=== PATIENT | male | born 1950 | race Two or more races ===

== ENCOUNTER 2017-11-10 11:12 | Emergency (ER) | payer OTHER ==
[~2017-11-10] VITALS: Ht 170.2 cm; Wt 134.3 kg
[~2017-11-10 11:12] MED LIST: AMLODIPINE BESY10 M1 PO; ASPIR 8181 MG PO; ATENOLOL100 MG PO; DIOVAN320 MG PO; GLIPIZIDE XL2.5 M1 PO; GLIPIZIDE10 MG PO; HYDROCHLOROTH12.5 M2 PO; METFORMIN HCL850 MG PO; REQUIP0.5 MG PO; RESTORIL30 MG PO; TASIGNA150 MG PO
[2017-11-10 11:19] VITALS: Ht 170.2 cm; Wt 134.3 kg
[2017-11-10 12:02] LABS: CARBON DIOXIDE 30.5 mmol/L (21-32); CHLORIDE SERUM 101 mmol/L (98-107); GFR1 > 60 mL/min; GLUCOSE SERUM 306 mg/dL (74-106); POTASSIUM SERUM 4.3 mmol/L (3.5-5.1); SODIUM SERUM 141 mmol/L (136-145)
[2017-11-10 12:06] LABS: ALKALINE PHOSPHATASE 123 U/L (46-116); ALT/SGPT 60 U/L (16-63); AST/SGOT 29 U/L (15-37); BILIRUBIN TOTAL 0.28 mg/dL (0.20-1.00); TOTAL PROTEIN, SERUM 7.9 g/dL (6.4-8.2); URIC ACID 5.3 mg/dL (3.5-7.2)
[2017-11-10 12:08] LABS: ALBUMIN 3.3 g/dL (3.4-5.0)
[2017-11-10 12:14] LABS: BASOPHIL % 0.2 % (0-2); PLATELET COUNT 221 x10^3mcL (130-400)
[2017-11-10 12:16] LABS: RED CELL DISTRIBUTION WIDTH 17.1 % (11.5-14.5)
[2017-11-10 13:29] LABS: APPEARANCE FLUID TURBID; COLOR FLUID YELLOW; RBC FLUID 60 /cumm; SITE FLUID RIGHT; SOURCE FLUID SYNOVIAL FLUID; WBC FLUID 3570 /cumm
[2017-11-10 13:50] VITALS: BP 139/71
[2017-11-10 14:03] LABS: LYMPHOCYTE FLUID 0 %
[2017-11-10 14:04] LABS: MONOCYTE FLUID 42 %
== END 2017-11-10 13:50 | disposition home or self-care (01) ==
LOC: ED 11:12
PROVIDERS: Emergency Medicine
DX: M25.461 Effusion, right knee (principal); M17.11 Unilateral primary osteoarthritis, right knee; E11.65 Type 2 diabetes mellitus with hyperglycemia; I10 Essential (primary) hypertension
CPT/HCPCS: 36415; Q0092

== ENCOUNTER 2018-02-17 14:16 | Emergency (ER) | payer OTHER ==
[~2018-02-17] VITALS: Ht 170.2 cm; Wt 136.9 kg
[2018-02-17 14:29] VITALS: BP 177/101; Ht 170.2 cm; Wt 136.9 kg
== END 2018-02-17 17:07 | disposition home or self-care (01) ==
LOC: ED 14:16
DX: G44.209 Tension-type headache, unspecified, not intractable (principal); I10 Essential (primary) hypertension; E11.9 Type 2 diabetes mellitus without complications; Z86.2 Personal history of diseases of the blood and blood-forming organs and certain disorders involving the immune mechanism
CPT/HCPCS: 20552; J2001